=== PATIENT | male | born 1990 | race Caucasian/White ===

== ENCOUNTER 2018-05-10 11:15 | Emergency (ER) | payer OTHER ==
--- NOTE | 2018-05-10 16:46 | RAD ---
Indication: Laceration lateral aspect RIGHT thumb. Comparison: No relevant prior exams available on the [facility] for comparison. Technique: AP, lateral, and oblique views RIGHT thumb. REPORT AND IMPRESSION: #. Deep laceration at the dorsal radial aspect of the thumb at the level of the metacarpal phalangeal joint and proximal phalanx. Subcutaneous emphysema. No conspicuous foreign body evident. #. Negative for fracture or malalignment.
--- NOTE | 2018-05-10 21:26 | UC ---
- Progress Note Progress Note: Patient Name: DANILO RICHARD Medical Record#: [id number] Ordering Physician: [facility] Acct.#: [id number] : 1990 Age: 27 Sex: M Location: [facility] Exam Date: 05/10/18 ADM Status: REG ER Order Information: THUMB RIGHT Accession Number: [id number] CPT: 79940 Indication: Laceration lateral aspect RIGHT thumb. Comparison: No relevant prior exams available on the [facility] for comparison. Technique: AP, lateral, and oblique views RIGHT thumb. REPORT AND IMPRESSION: #. Deep laceration at the dorsal radial aspect of the thumb at the level of the metacarpal phalangeal joint and proximal phalanx. Subcutaneous emphysema. No conspicuous foreign body evident. #. Negative for fracture or malalignment. <Electronically signed by Avtar Simons MD in OV> 05/10/18 1643 Dictated By: Avtar Simons MD Dictated Date/Time: 05/10/18 1643 Transcribed Date/Time: 05/10/18 1250 Copy to: CC:[facility]; No Primary Care Phys,NOPCP Imaging - [facility] [address] [address] ph ([phone]) ph ([phone]) ph ([phone]) This report is only to be considered final once signed by the Provider(s) as displayed in the "<Electronically Signed by >" field (s). Absence of a signature indicates the report is in a draft status and still needs to be finalized. In the event this document was created by someone other than the signing Provider, the individual initiating the document will be listed in the "Entered by:" or "Dictated by:" marin. 1 of 1 Discharge - Sign-Out/Discharge Documenting (check all that apply): Post-Discharge Follow Up All imaging exams completed and their final reports reviewed: Yes - Discharge Plan Referrals: No Primary Care Phys,NOPCP [Primary Care Provider] -
== END 2018-05-10 15:00 | disposition home or self-care (01) ==
LOC: UCCORT 11:15
DX: S61.011A Laceration without foreign body of right thumb without damage to nail, initial encounter (principal); T79.7XXA Traumatic subcutaneous emphysema, initial encounter; X58.XXXA Exposure to other specified factors, initial encounter; Y92.9 Unspecified place or not applicable
CPT/HCPCS: 12042; 90471; 96372; 99202; G0463

== ENCOUNTER 2018-05-28 09:43 | Emergency (ER) | payer OTHER ==
[2018-05-28 10:27] VITALS: BP 123/61
--- NOTE | 2018-05-28 10:38 | UC ---
HPI Wound/Suture Re-check - HPI Summary HPI Summary: 27-year-old male presents for suture removal for laceration of the right thumb. He was initially seen at this facility on 05/10/2018 by myself and referred to [facility] for concern of tendon laceration. He states that the hand surgeon felt that it was only a partial laceration and that no further repair was necessary. Denies pain, fever, chills, erythema, edema, purulent drainage, numbness or tingling. - History Of Current Complaint Chief Complaint: UCGeneralIllness Stated Complaint: STICHES REMOVAL - DONE HERE Time Seen by Provider: 05/28/18 10:32 Hx Obtained From: Patient Pain Intensity: 0 Procedure Type: Laceration repair right thumb Surgery Date: 05/10/18 - Allergies/Home Medications Allergies/Adverse Reactions: Allergies Allergy/AdvReac Type Severity Reaction Status Date / Time No Known Allergies Allergy Verified 05/28/18 10:24 Home Medications: Home Medications NK [No Home Medications Reported] 05/28/18 [History Confirmed 05/28/18] PMH/Surg Hx/FS Hx/Imm Hx Previously Healthy: Yes - Denies significant PMH - Surgical History Surgical History: None - Family History Family History: Noncontributory - Social History Occupation: Employed Full-time Lives: With Family Alcohol Use: Occasionally Substance Use Type: None Smoking Status (MU): Light Every Day Tobacco Smoker Review of Systems Constitutional: Negative Skin: Other - See HPI Motor: Negative Neurovascular: Negative Musculoskeletal: Negative Is Patient Immunocompromised?: No All Other Systems Reviewed And Are Negative: Yes Physical Exam Triage Information Reviewed: Yes Appearance: Well-Appearing, No Pain Distress, Well-Nourished Vital Signs: Initial Vital Signs Temp 98.7 F 05/28/18 10:23 Pulse 70 05/28/18 10:23 Resp 14 05/28/18 10:23 BP 123/61 05/28/18 10:23 Pulse Ox 100 05/28/18 10:23 Respiratory: Positive: No respiratory distress Cardiovascular: Positive: Pulses Normal, Brisk Capillary Refill Musculoskeletal: Positive: No Edema, ROM Limited @ - right thumb due to concern for pulling wound open Neurological: Positive: Alert, Other: - sensation intact distally Skin: Positive: significant lesion(s) - Laceration to dorsal right tumb. Margins approximated with 4 interrupted sutures. See procedure note for full details. Procedures - Procedure Summary Procedure Summary: 4 interrupted sutures were removed without complication. Wound was overall well approximated however there were a couple of small areas where the margins appeared loose. No erythema, edema, or drainage noted. The wound was cleansed and two 1/4 inch Steri-Strips were applied to secure the wound margins. A gauze dressing was applied and patient was placed in a thumb spica splint. He is to return in 1 week for wound check. Course/Dx - Course Course Of Treatment: 27 year old male presents for wound check and suture removal of laceration to right thumb that occurred 05/10/2018. No signs of infection however there were a few areas along the wound that were not fully healed and I had a concern that use of the thumb may cause dehiscence in these areas. 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 The sutures were removed since they had been in place for 19 days. Two 1/4 inch steristrips were applied to secure the wound margins, a dressing applied, and patient was placed in a thumb spica splint to allow for further healing. Patient is to return in 7 days for wound recheck. - Differential Dx - Laceration/Wound Provider Diagnoses: laceration right thumb, suture removal Discharge - Sign-Out/Discharge Documenting (check all that apply): Patient Departure All imaging exams completed and their final reports reviewed: No Studies - Discharge Plan Condition: Stable Disposition: HOME Patient Education Materials: Stitches Removal (ED) Referrals: No Primary Care Phys,NOPCP [Primary Care Provider] - Additional Instructions: Your laceration appears to be healing well however there were a couple of areas that appear to need a little more time to heal. I have placed Steri-Strips to help secure the wound. These will slowly peel up form the ends and fall off. You may trim the ends if needed but do not pull the Steri-Strip off as this may reopen the wound. Continue to gently clean with a mild soap and water at least once daily. Keep covered with gauze dressing. Change this at least once daily or any time the dressing becomes wet or soiled. Wear the splint to help support the thumb and prevent putting stress on the wound. You may remove to shower and sleep if desired. Return in 1 week for wound recheck. Continue to monitor for signs of infection including fever greater than 100.5 F , pain that is not managed with over the counter pain medication, redness that spreads, swelling of the finger, or pus draining from the wound. Seek immediate medical attention should any of these occur. - Billing Disposition and Condition Condition: STABLE Disposition: Home
== END 2018-05-28 11:41 | disposition home or self-care (01) ==
LOC: UCCORT 09:43
DX: S61.011D Laceration without foreign body of right thumb without damage to nail, subsequent encounter (principal); F17.210 Nicotine dependence, cigarettes, uncomplicated
CPT/HCPCS: 99213; G0463

== ENCOUNTER 2018-06-04 11:11 | Emergency (ER) | payer OTHER ==
--- NOTE | 2018-06-04 12:03 | UC ---
HPI Wound/Suture Re-check - HPI Summary HPI Summary: The patient is a 27-year-old male was seen here about 3 weeks ago with a laceration to the dorsum of his right thumb that was caused by a saw. She occurred at work. Right handed. He was found to have a laceration of the extensor tendon of his thumb. He was referred to a hand specialist at [facility]. He was seen there after the injury and was told that he only had a partial extensor tendon laceration and that it should heal fine. He reports here for follow-up because he still has limited use of the thumb and he wanted our opinion on whether he could return to full duty yet. 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 When he was seen here he was x-rayed. His x-ray was negative. - History Of Current Complaint Chief Complaint: UCLaceration Stated Complaint: HAND LACERATION FOLLOW-UP Hx Obtained From: Patient Onset/Duration: Sudden Onset, Lasting Weeks Severity: Mild Pain Intensity: 0 Pain Scale Used: 0-10 Numeric - Allergies/Home Medications Allergies/Adverse Reactions: Allergies Allergy/AdvReac Type Severity Reaction Status Date / Time No Known Allergies Allergy Verified 06/04/18 11:30 PMH/Surg Hx/FS Hx/Imm Hx Previously Healthy: Yes - Surgical History Surgical History: None - Family History Known Family History: Positive: Hypertension Family History: Noncontributory - Social History Alcohol Use: Weekly Substance Use Type: None Smoking Status (MU): Light Every Day Tobacco Smoker Type: Cigarettes, Smokeless Tobacco Amount Used/How Often: ~1/2 PPD and daily "chew pack" Review of Systems Constitutional: Negative Skin: Negative Eyes: Negative ENT: Negative Respiratory: Negative Cardiovascular: Negative Gastrointestinal: Negative Genitourinary: Negative Motor: Negative Neurovascular: Negative Musculoskeletal: Negative Neurological: Negative Psychological: Negative All Other Systems Reviewed And Are Negative: Yes Physical Exam Triage Information Reviewed: Yes Appearance: Well-Appearing, No Pain Distress, Well-Nourished Vital Signs: Initial Vital Signs Temp 98.4 F 06/04/18 11:28 Pulse 74 06/04/18 11:28 Resp 16 06/04/18 11:28 BP 131/73 06/04/18 11:28 Pulse Ox 99 06/04/18 11:28 Vital Signs Reviewed: Yes Eyes: Positive: Conjunctiva Clear ENT: Positive: Hearing grossly normal. Negative: Nasal congestion, Nasal drainage, Trismus, Muffled voice, Hoarse voice Neck: Positive: Supple, Nontender Respiratory: Positive: Lungs clear, Normal breath sounds, No respiratory distress, No accessory muscle use Cardiovascular: Positive: RRR, No Murmur Musculoskeletal: Negative: ROM Limited @ - right thumb -limited extenson of IP joint Neurological: Positive: Alert Psychological Exam: Normal Skin Exam: Other - healing lac, still granulating in at most proximal end of lac Course/Dx - Course Course Of Treatment: Advised he follow up for both recheck of healing/possible PT,OT referral and possible hand specialist referral - Differential Dx - Laceration/Wound Provider Diagnoses: Laceration recheck right thumb. Poor extension of thumb c/ w extensor tendon laceration Discharge - Sign-Out/Discharge Documenting (check all that apply): Patient Departure All imaging exams completed and their final reports reviewed: No Studies - Discharge Plan Condition: Stable Disposition: HOME Referrals: August Romo MD [Medical Doctor] - As Soon As Possible Additional Instructions: your wound still has a lot of healing to do your range of motion is limited I suggest you see Dr. Romo this week You may need referral to OT/PT You may need to see another hand specialist - Billing Disposition and Condition Condition: STABLE Disposition: Home
[2018-06-04 12:19] VITALS: BP 131/73
== END 2018-06-04 12:08 | disposition home or self-care (01) ==
LOC: UCCORT 11:11
DX: Z51.89 Encounter for other specified aftercare (principal); W27.8XXD Contact with other nonpowered hand tool, subsequent encounter; S66.021A Laceration of long flexor muscle, fascia and tendon of right thumb at wrist and hand level, initial encounter; I10 Essential (primary) hypertension; F17.210 Nicotine dependence, cigarettes, uncomplicated; F17.220 Nicotine dependence, chewing tobacco, uncomplicated
CPT/HCPCS: 99211; G0463